=== PATIENT | male | born 1955 | race Caucasian/White ===

== ENCOUNTER → 2016-05-20 | Outpatient (CLI) | payer BC ==
[2015-11-12 14:41] VITALS: BP 118/72; PULSE 64
[~2016-05-20] MED LIST: ASCO10003 PO; ASPEC81 PO; ASPI81TA28 PO; CHOL2000 PO; COEN150C PO; FINA5TAB PO; GARL400T2 PO; GARL400T4 PO; IODI1TAB PO; MAGNTAB4 PO; MULT-506 PO; NTRGSL/4 UT; NTRSLP4 SL; OMEG10007 PO; QUERTAB PO; SLWMEC PO; TAMS0.4C38 PO; VERA180C2 PO; VRPSR180 PO
[2016-05-20 13:57] VITALS: BP 118/80; PULSE 68; TEMP 36.8; O2SAT 96
--- NOTE | 2016-05-20 15:27 | Radiation Oncology Follow-Up ---
Radiation Oncology Follow-Up Date of Visit May 20, 2016. 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 Interiano is a 59-year-old male with a history of bilateral Dupuytren contraction. He has had surgery on the left hand and is awaiting surgery on the right hand. More recently he noted the development of pain in his right foot and was seen by podiatry. Several nodules were identified and he was diagnosed with Ledderhose disease (plantar fibromatosis) the patient has noted increasing pain with walking especially weightbearing with his feet flat. 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 He was seeking intervention that may help him with his right feet pain. He does not wanted to consider surgery due to the likely healing time required. More recently he has noted the onset of some contractures and more mild discomfort in the left foot. In May of this year the patient developed transient left arm weakness which lasted for 10-15 minutes. Patient was admitted to [facility] for possible TIA and stroke rule out. The patient was seen by neurology and a history of visual disturbances was elicited raising the possibility of a variant of migraine. Patient underwent an MRI of the brain which was negative and an MRI of the brain with contrast also negative. The carotid Doppler was negative for stenosis. He was discharged with antihypertensive medication and aspirin. Patient has had no further episodes and has had complete resolution of his symptoms. The patient was seen at the department of radiation oncology at the [facility] in [place]. He was seen by Dr. Zuhair June. His review of the history and examination confirmed findings consistent with Ledderhose disease. He discussed the possibility of treatment with radiation. He was kind enough to indicate likely treatment paez and suggested treatment with bolus and en face electron paez delivering 300 cGy per fraction for 5 fractions. He then recommended a minimum four-week rest and then repeat. It is experiencing is noted that the majority of the patients do have significant pain relief but only a modest reduction in the size of the nodules. The patient wished to receive his treatment closer to home if possible. For this reason we followed the recommendation of Dr. June and treat him with electrons for 10 fractions delivering 5 fractions followed by a 2 week break followed by the final 5 fractions. The total dose was 30 GY. Interim History He is been doing well over the past 6 months. He feels that the nodularity of the plantar surface of the right foot is softer. He does have some mild discomfort with exercise. Stretching does help. His is a physical therapist and does help with massage to the foot and stretching exercises. There is been no increase in size or new nodules on the right side. He has not had any difficulty with skin on his foot since his treatment. He continues to have a nodule on the left side. He feels that this is stable. It is not becoming larger in size and there are no new nodules. Allergies Coded Allergies: Thimerosal (Verified Allergy, Unknown, UNKNOWN, 06/14/15) Home Medications Scheduled Ascorbic Acid (Vitamin C), 1 TAB PO DAILY Aspirin (Aspirin EC Low Dose), 81 MG PO QAM Cholecalciferol (Vitamin D3), 1 CAP PO DAILY Coenzyme Q10 (Ubidecarenone) (Co Q-10), 1 TAB PO DAILY Finasteride (Proscar), 1 TAB PO DAILY Fish Oil ([place]-3), 1 CAP PO DAILY Garlic-Calcium (Garlic), 2 TABS PO DAILY Iodine (Kelp) (Kelp), 1 TAB PO DAILY Magnesium Chloride (Slow-Mag Tab), 64 MG PO DAILY Multivitamin (Multivitamin), 1 TAB PO DAILY Quercetin (Quercetin), 1 TAB PO DAILY Tamsulosin Hcl (Flomax), 1 CAP PO DAILY Verapamil HCl (Verapamil HCl ER), 180 MG PO QAM Scheduled PRN Nitroglycerin (Nitrostat), 0.4 MG SL UD PRN for Chest Pain Review of Systems Gastrointestinal: Symptoms: WNL Oral: Symptoms: No Problems Respiratory: Symptoms: WNL Urinary: Symptoms: WNL Skin: Symptoms: No Problems Physical Exam Vital Signs Date Time Temp Pulse Resp B/P Pulse Ox O2 Delivery O2 Flow Rate FiO2 05/20/16 13:57 36.8 68 12 118/80 96 Pain: Patient Pain Scale: 0 - 10 Initial Pain Intensity: 0.0 Fatigue: None Extremities: non-tender, no pedal edema, + pertinent finding (there is palpable nodularity on the plantar surface of the right foot. This is smaller and softer from prior examination. He does have a nodule of the left plantar surface which measures 0.75 cm. This is nontender.) Neurologic/Psychiatric: no motor/sensory deficits, alert, normal mood/affect Skin: warm/dry Lymphatic: no adenopathy Assessment & Plan Plan: The patient was seen and examined by Dr. Salamanca. He has had improvement in the nodularity of the right foot. He feels that the left foot is stable. He does not wish to pursue treatment to the left currently at this time. We did ask him to return to our office in 6 months. He may call if he has any questions or concerns in the interim or if he feels that he would like to have the left foot treated. Total Time In Follow-Up I spent 15 minutes being to the patient performing examination. I spent 15 minutes reviewing information in completing this note. Copy To Zuhair June M.D.; West Villareal M.D.(BLAZE
== END | disposition home or self-care (01) ==
LOC: C.ONC 13:45
PROVIDERS: ATTEND Radiology Radiation Oncology
DX: Z08 Encounter for follow-up examination after completed treatment for malignant neoplasm (principal); Z92.3 Personal history of irradiation; Z87.898 Personal history of other specified conditions

== ENCOUNTER 2016-11-02 15:18 | Emergency (ER) | payer BC ==
[~2016-11-02] VITALS: Ht 188 cm; Wt 91.3 kg
[~2016-11-02 15:18] MED LIST changes: -ASPI81TA28 PO; -GARL400T2 PO; -NTRGSL/4 UT; -SLWMEC PO; -VERA180C2 PO
[2016-11-02 15:26] VITALS: BP 162/114; PULSE 81; TEMP 36.7; O2SAT 97; Ht 188 cm; Wt 91.3 kg
[2016-11-02] MEDS ORDERED: RABIES VACCINE (IMOVAX) HUMAN DIPL CELL 2.5 INTER.UNIT/ML SYR IM. ONE (15:45)
[2016-11-02] MEDS ORDERED: ASPI81TA28 PO (15:49)
[2016-11-02] MEDS ORDERED: NTRGSL/4 UT (15:49)
[2016-11-02] MEDS ORDERED: GARL400T2 PO (15:49)
[2016-11-02] MEDS ORDERED: VERA180C2 PO (15:49)
[2016-11-02] MEDS ORDERED: SLWMEC PO (15:49)
--- NOTE | 2016-11-02 16:43 | EMERGENCY ROOM VISIT NOTE ---
History First contact with patient: 15:30 Chief Complaint: RABIES VACCINE Stated Complaint: POSSIBLE EXPOSURE TO RABIES SALIVA History of Present Illness The patient is a 61 year old male who presents to the Emergency Room with his spouse, requesting rabies post exposure prophylaxis. The patient reports that he was installing fence posts on his property when a ground hog walked up to him , walking in circles.. He did kill the ground hog. The patient and are concerned because the ground hog has been eating the same peaches that he and his have been eating, and are concerned about transmission of rabies by saliva. Both the patient and have undergone the rabies post exposure prophylaxis series in the after their dog got into a fight with a ground hog that was also acting suspiciously. They did have contact with the ground hog saliva with that incident. Review of Systems 10 system review was performed and was negative except for pertinent positives and negatives as indicated in history of present illness Past Medical/Surgical History Medical Problems: (1) Ledderhose's disease (2) NSTEMI (non-ST elevated myocardial infarction) (3) TIA (transient ischemic attack) Family History Unremarkable Social History Smoking Status: Never Smoker Alcohol Use: none Drug Use: none Marital Status: Housing Status: lives with family Occupation Status: employed Current/Historical Medications Scheduled Ascorbic Acid (Vitamin C), 1 TAB PO DAILY Aspirin (Aspirin Ec), 81 MG PO DAILY Cholecalciferol (Vitamin D3), 1 CAP PO DAILY Coenzyme Q10 (Ubidecarenone) (Co Q-10), 1 TAB PO DAILY Finasteride (Proscar), 1 TAB PO DAILY Fish Oil ([place]-3), 1 CAP PO DAILY Garlic (Garlic), Unknown Dose PO DAILY Iodine (Kelp) (Kelp), 1 TAB PO DAILY Magnesium Chloride (Slow-Mag Tab), 64 MG PO DAILY Multivitamin (Multivitamin), 1 TAB PO DAILY Quercetin (Quercetin), 1 TAB PO DAILY Tamsulosin Hcl (Flomax), 1 CAP PO DAILY Verapamil Hcl (Verapamil Hcl Er), 180 MG PO QAM Scheduled PRN Nitroglycerin (Nitrostat), 0.4 MG UT PRN PRN for Chest Pain Allergies Coded Allergies: Thimerosal (Verified Allergy, Intermediate, CAUSED EYE IRRITATION-(USED IN CONTACT SOLUTIONS), 11/02/16) Physical Exam Vital Signs Date Time Temp Pulse Resp B/P (MAP) Pulse Ox O2 Delivery O2 Flow Rate FiO2 11/02/16 15:26 36.7 81 18 162/114 97 Room Air Pain Rating (0-10): 0 Physical Exam CONSTITUTIONAL: Healthy and well nourished. HEENT: Normocephalic, atraumatic. Pupils equal, round and reactive. INTEGUMENTARY: No rash or other significant dermatologic conditions noted. NEUROLOGIC: No focal neurologic deficits noted. Medical Decision & Procedures Medications Administered Medications (Trade) Dose Ordered Sig/Sae Route Start Time Stop Time Status Last Admin Dose Admin Rabies Vaccine Human Diploid Cell (Imovax Rabies) 2.5 interunit ONCE ONCE IM. 11/02/16 15:45 11/02/16 15:46 DC 11/02/16 15:48 2.5 INTERUNIT ED Course Patient history and physical exam were performed. Nurse's notes were reviewed. Vital signs were reviewed and were normal. The patient was administered Imovax IM. The patient was instructed to return in 3 days for a final Imovax immunization. Return sooner with any adverse effects to the injections. Medical Decision Impression Primary Impression: Rabies, need for prophylactic vaccination against Departure Information Dispostion Home / Self-Care Forms HOME CARE DOCUMENTATION FORM, IMPORTANT VISIT INFORMATION Patient Instructions [facility] Additional Instructions Return on Sunday 11/05 for your final Imovax injection
== END 2016-11-02 16:22 | disposition home or self-care (01) ==
LOC: C.EDB 15:19 → C.EDD 16:22
DX: Z20.3 Contact with and (suspected) exposure to rabies (principal); Z23 Encounter for immunization; I25.2 Old myocardial infarction; Z86.73 Personal history of transient ischemic attack (TIA), and cerebral infarction without residual deficits; Z79.82 Long term (current) use of aspirin; Z79.899 Other long term (current) drug therapy

== ENCOUNTER 2016-11-05 12:45 | Emergency (ER) | payer BC ==
[~2016-11-05] VITALS: Ht 188 cm; Wt 91.6 kg
[~2016-11-05 12:45] MED LIST changes: -ASPEC81 PO; +ASPI81TA28 PO; +GARL400T2 PO; -GARL400T4 PO; -MAGNTAB4 PO; +NTRGSL/4 UT; -NTRSLP4 SL; +SLWMEC PO; +VERA180C2 PO; -VRPSR180 PO
[2016-11-05 12:51] VITALS: TEMP 36.6; Ht 188 cm; Wt 91.6 kg
[2016-11-05] MEDS ORDERED: RABIES VACCINE (IMOVAX) HUMAN DIPL CELL 2.5 INTER.UNIT/ML SYR IM. ONE (13:15)
--- NOTE | 2016-11-05 13:20 | EMERGENCY ROOM VISIT NOTE ---
History First contact with patient: 13:05 Chief Complaint: RABIES VACCINE REPEAT VISIT Stated Complaint: FOLLOW UP RABIES SHOT History of Present Illness The patient is a 61 year old male who presents to the Emergency Room for a second and final Imovax injection. The patient has already undergone a previous rabies postexposure prophylaxis series. The patient denies any adverse reactions to his previous injection. Review of Systems 6 system review was performed and was negative except for pertinent positives and negatives as indicated in history of present illness Past Medical/Surgical History Medical Problems: (1) Ledderhose's disease (2) NSTEMI (non-ST elevated myocardial infarction) (3) TIA (transient ischemic attack) Social History Smoking Status: Never Smoker Alcohol Use: none Drug Use: none Marital Status: Housing Status: lives with family Occupation Status: employed Current/Historical Medications Scheduled Ascorbic Acid (Vitamin C), 1 TAB PO DAILY Aspirin (Aspirin Ec), 81 MG PO DAILY Cholecalciferol (Vitamin D3), 1 CAP PO DAILY Coenzyme Q10 (Ubidecarenone) (Co Q-10), 1 TAB PO DAILY Finasteride (Proscar), 1 TAB PO DAILY Fish Oil ([place]-3), 1 CAP PO DAILY Garlic (Garlic), Unknown Dose PO DAILY Iodine (Kelp) (Kelp), 1 TAB PO DAILY Magnesium Chloride (Slow-Mag Tab), 64 MG PO DAILY Multivitamin (Multivitamin), 1 TAB PO DAILY Quercetin (Quercetin), 1 TAB PO DAILY Tamsulosin Hcl (Flomax), 1 CAP PO DAILY Verapamil Hcl (Verapamil Hcl Er), 180 MG PO QAM Scheduled PRN Nitroglycerin (Nitrostat), 0.4 MG UT PRN PRN for Chest Pain Physical Exam Vital Signs Date Time Temp Pulse Resp B/P (MAP) Pulse Ox O2 Delivery O2 Flow Rate FiO2 11/05/16 12:51 36.6 66 18 150/89 96 Room Air Physical Exam CONSTITUTIONAL: Healthy and well nourished. HEENT: Normocephalic, atraumatic. Pupils equal, round and reactive. No scleral icterus. INTEGUMENTARY: No rash or other significant dermatologic conditions noted. NEUROLOGIC: No focal neurologic deficits noted. Medical Decision & Procedures Medications Administered Medications (Trade) Dose Ordered Sig/Sae Route Start Time Stop Time Status Last Admin Dose Admin Rabies Vaccine Human Diploid Cell (Imovax Rabies) 2.5 interunit ONCE ONCE IM. 11/05/16 13:15 11/05/16 13:16 DC 11/05/16 13:20 2.5 INTERUNIT ED Course History and physical exam were performed. Nurse's notes were reviewed. Vital signs were reviewed and normal. The patient was administered Imovax IM without adverse reaction. This is the patient's last injection in the series since the patient has already undergone a post exposure prophylaxis series in the past. The patient was advised that if he has any potential rabies exposure in the future, he should advise his healthcare provider that he has already undergone the initial immunization series. The patient was happy with plan of care, and denied any pain at the time of discharge. Medical Decision Blood Pressure Screening Patient's blood pressure: Normal blood pressure Impression Primary Impression: Need for prophylactic vaccination against rabies Departure Information Dispostion Home / Self-Care Forms HOME CARE DOCUMENTATION FORM, IMPORTANT VISIT INFORMATION Patient Instructions My [facility] Additional Instructions If you have any potential rabies exposure in the future, advise your healthcare provider that you have already undergone this immunization series.
[2016-11-05 13:32] VITALS: BP 147/84; PULSE 68; O2SAT 98
== END 2016-11-05 13:33 | disposition home or self-care (01) ==
LOC: C.EDB 12:46 → C.EDD 13:33
DX: Z23 Encounter for immunization (principal); Z20.3 Contact with and (suspected) exposure to rabies; I25.2 Old myocardial infarction; Z86.73 Personal history of transient ischemic attack (TIA), and cerebral infarction without residual deficits; Z79.82 Long term (current) use of aspirin; Z79.899 Other long term (current) drug therapy

== ENCOUNTER → 2016-11-23 | Outpatient (CLI) | payer BC ==
[2016-11-23 14:39] VITALS: BP 128/79; PULSE 66; TEMP 36.6; O2SAT 96
--- NOTE | 2016-11-23 16:25 | Radiation Oncology Follow-Up ---
Radiation Oncology Follow-Up Date of Visit Nov 23, 2016. 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 Interiano is a 61-year-old male with a history of bilateral Dupuytren contraction. He has had surgery on the left hand and is awaiting surgery on the right hand. More recently he noted the development of pain in his right foot and was seen by podiatry. Several nodules were identified and he was diagnosed with Ledderhose disease (plantar fibromatosis) the patient has noted increasing pain with walking especially weightbearing with his feet flat. 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 He was seeking intervention that may help him with his right feet pain. He does not wanted to consider surgery due to the likely healing time required. More recently he has noted the onset of some contractures and more mild discomfort in the left foot. In May of this year the patient developed transient left arm weakness which lasted for 10-15 minutes. Patient was admitted to [facility] for possible TIA and stroke rule out. The patient was seen by neurology and a history of visual disturbances was elicited raising the possibility of a variant of migraine. Patient underwent an MRI of the brain which was negative and an MRI of the brain with contrast also negative. The carotid Doppler was negative for stenosis. He was discharged with antihypertensive medication and aspirin. Patient has had no further episodes and has had complete resolution of his symptoms. The patient was seen at the department of radiation oncology at the [facility] [address] [facility] in [place]. He was seen by Dr. Zuhair June. His review of the history and examination confirmed findings consistent with Ledderhose disease. He discussed the possibility of treatment with radiation. He was kind enough to indicate likely treatment paez and suggested treatment with bolus and en face electron paez delivering 300 cGy per fraction for 5 fractions. He then recommended a minimum four-week rest and then repeat. It is experiencing is noted that the majority of the patients do have significant pain relief but only a modest reduction in the size of the nodules. The patient wished to receive his treatment closer to home if possible. For this reason we followed the recommendation of Dr. June and treat him with electrons for 10 fractions delivering 5 fractions followed by a 2 week break followed by the final 5 fractions. The total dose was 30 GY. Interim History He has been doing well over the past 6 months in regards to discomfort of his right foot. There is much less discomfort with walking. He has noted no new contractures. He does have increased discomfort of the left foot. There is 1 large contracture at the arch the foot. He gives his discomfort A level III. This unfortunately does keep him from exercise that he previously did enjoy. He would go for long hikes. This will provoke pain and therefore he has been avoiding hiking. There is a tight feeling in the arch of the foot at the end of the day. He would like to go forward with treatment now of the left foot. Allergies Coded Allergies: Thimerosal (Verified Allergy, Intermediate, CAUSED EYE IRRITATION-(USED IN CONTACT SOLUTIONS), 11/05/16) Home Medications Scheduled Ascorbic Acid (Vitamin C), 1 TAB PO DAILY Aspirin (Aspirin Ec), 81 MG PO DAILY Cholecalciferol (Vitamin D3), 1 CAP PO DAILY Coenzyme Q10 (Ubidecarenone) (Co Q-10), 1 TAB PO DAILY Finasteride (Proscar), 1 TAB PO DAILY Fish Oil ([place]-3), 1 CAP PO DAILY Garlic (Garlic), Unknown Dose PO DAILY Iodine (Kelp) (Kelp), 1 TAB PO DAILY Magnesium Chloride (Slow-Mag Tab), 64 MG PO DAILY Multivitamin (Multivitamin), 1 TAB PO DAILY Quercetin (Quercetin), 1 TAB PO DAILY Tamsulosin Hcl (Flomax), 1 CAP PO DAILY Verapamil Hcl (Verapamil Hcl Er), 180 MG PO QAM Scheduled PRN Nitroglycerin (Nitrostat), 0.4 MG UT PRN PRN for Chest Pain Review of Systems Gastrointestinal: Symptoms: WNL Oral: Symptoms: Scant Saliva/Dry Mouth Respiratory: Symptoms: WNL Urinary: Symptoms: WNL Skin: Symptoms: No Problems Physical Exam Vital Signs Date Time Temp Pulse Resp B/P (MAP) Pulse Ox O2 Delivery O2 Flow Rate FiO2 11/23/16 14:39 36.6 66 20 128/79 96 Pain: Side: Bilateral Patient Pain Scale: 0 - 10 Initial Pain Intensity: 1.0 Pain Description: Tightness Fatigue: None Extremities: + pertinent finding (right foot reveals no palpable nodules. There is no tenderness. The left foot does show a 2 cm nodule at the center of the arch of the foot. There is tenderness to palpation. There is no erythema.) Neurologic/Psychiatric: no motor/sensory deficits, alert, normal mood/affect Skin: warm/dry Assessment & Plan Plan: The patient was seen and examined by Dr. Salamanca. Potential side effects were reviewed. CT simulation was scheduled. A consent was read and signed and all questions were answered. A she'll like to go forward with treatment to the left foot. Assessment & Plan (Attending) This patient is had a good response to the initial treatment to the right foot fascia. He is able to walk without discomfort and has no tenderness to palpation. However he is noted worsening of the nodularity of the fascia on the left foot. There is now a palpable nodule in the mid portion of the left foot measuring approximately 3-1/2 cm long and fusiform and up to a centimeter and a half wide at its thickest point. This is only mildly tender but is causing discomfort while walking. The patient asked about treatment to the left foot fascia. I again reviewed with him the process of CT simulation and treatment planning. A consent form was reviewed with the patient. The schedule be the same as for his right foot. The consent form was reviewed, and initialed and signed. With the patient's consent we will proceed with CT simulation on 11/30/2016. Treatment will follow the completion of the treatment planning process. Total Time In Follow-Up I spent 20 minutes speaking to the patient performing examination. A 15 minutes reviewing information of completing this note. AK Total Time (Attending) In Follow-Up I spent 10 minutes in evaluation and discussion of treatment options with this patient and 5 minutes reviewing his chart and in preparation of this document. DARNELL Copy To Zuhair June M.D.; West Villarela M.D. (HUGH)
== END | disposition home or self-care (01) ==
LOC: C.ONC 14:31
PROVIDERS: ATTEND Physician Assistant Medical
DX: Z08 Encounter for follow-up examination after completed treatment for malignant neoplasm (principal); Z92.3 Personal history of irradiation; Z85.89 Personal history of malignant neoplasm of other organs and systems

== ENCOUNTER 2017-02-15 10:02 | Day surgery (SDC) | payer BC ==
[2017-02-14 15:12] VITALS: BMI 25.0
[~2017-02-15] VITALS: Ht 188 cm; Wt 90.9 kg
[~2017-02-15 10:02] MED LIST changes: +CEFAZOLIN 2000MG IV PUSH 10 ML IV SCH; +LACTATED RINGER'S 1000ML 1,000 ML IV SCH; +PRED20TA2 PO
[2017-02-15 10:20] VITALS: BP 174/99; PULSE 58; TEMP 36.6; O2SAT 99; Ht 188 cm; Wt 90.9 kg
[2017-02-15] MEDS ORDERED: FENTANYL CITRATE INJ 50 MCG/1 ML 2 ML VIAL ONE (12:58)
[2017-02-15] MEDS ORDERED: MIDAZOLAM HCL 1 MG/ML 2ML VIAL ONE (12:58)
--- NOTE | 2017-02-15 13:18 | History & Physical Bridge Note ---
H&P Re-Evaluation Bridge Note: I have examined the patient, reviewed the History & Physical and in the interval since the performance of the History & Physical I have noted the following changes of clinical significance: No changes noted
[2017-02-15] MEDS ORDERED: LIDOCAINE HCL 1% 20 ML VIAL ONE (13:45)
[2017-02-15] MEDS ORDERED: BACITRACIN OINT 15 GM TUBE ONE (13:46)
[2017-02-15] MEDS ORDERED: BUPIVACAINE 0.5 % 5 MG/1 ML MPF 30ML VIAL ONE (14:21)
[2017-02-15] MEDS ORDERED: LABETALOL HCL IV 5 MG/ML 20ML IV PRN (14:45)
[2017-02-15] MEDS ORDERED: ATROPINE SULFATE 0.1 MG/ML 5ML SYR IV PRN (14:45)
[2017-02-15] MEDS ORDERED: FENTANYL CITRATE INJ 50 MCG/1 ML 2 ML VIAL IV PRN (14:45)
[2017-02-15] MEDS ORDERED: ONDANSETRON INJ 2 MG/ML 2 ML VIAL IV PRN (14:45)
[2017-02-15] MEDS ORDERED: EpHEDrine SULFATE INJ 50 MG/ML AMP IV PRN (14:45)
[2017-02-15] MEDS ORDERED: PROMETHAZINE HCL INJ 12.5 MG in SODIUM CHLORIDE 0.9% 50ML 50 ML IV PRN (14:45)
[2017-02-15] MEDS ORDERED: NALOXONE HCL 0.4 MG/1 ML VIAL/CARP IV PRN (14:45)
[2017-02-15] MEDS ORDERED: FLUMAZENIL 0.1 MG/1 ML 10 ML VIAL IV PRN (14:45)
[2017-02-15] MEDS ORDERED: PROPOFOL IV EMULSION 10 MG/ML 20 ML VIAL IV ONE (15:05)
--- NOTE | 2017-02-15 15:47 | [facility] Post Operative Brief Note ---
Immediate Operative Summary Operative Date Feb 15, 2017. Pre-Operative Diagnosis Left temporal pain Post-Operative Diagnosis Left temporal pain Procedure(s) Performed Left temporal artery biopsy Surgeon Dr. Aquino Psychiatric Technician Assistant Surgeon(s) certified surgical tech/first assistant Estimated Blood Loss 10cc Findings patent temporal artery Fluids (cc crystalloids) 800ml Specimens A. Left temporal artery biopsy rule-out arthritis (sent in formalin per Dr. Aquino and Histology) Drains none Anesthesia sedation + local Complication(s) None Disposition Recovery Room / PACU
[2017-02-15] MEDS ORDERED: OXYC-57 PO (15:58)
--- NOTE | 2017-02-15 15:59 | Anesthesiology Progress Note ---
Anesthesia Post Op Note Date & Time Feb 15, 2017 at 15:59 Vital Signs Pain Intensity: 0 Vital Signs Past 12 Hours Date Time Temp Pulse Resp B/P (MAP) Pulse Ox O2 Delivery O2 Flow Rate FiO2 02/15/17 15:55 51 14 133/83 97 Room Air 02/15/17 15:47 36.5 54 12 129/84 100 Room Air 02/15/17 10:20 36.6 58 18 174/99 (124) 99 Room Air Notes Mental Status: alert / awake / arousable, participated in evaluation Pt Amnestic to Procedure: Yes Nausea / Vomiting: adequately controlled Pain: adequately controlled Airway Patency, RR, SpO2: stable & adequate BP & HR: stable & adequate Hydration State: stable & adequate Anesthetic Complications: no major complications apparent
--- NOTE | 2017-02-15 16:02 | Discharge Instructions ---
Discharge Instructions Date of Service Feb 15, 2017. Visit Reason for Visit: Temporal Pain Discharge Discharge Diagnosis / Problem: S/P left temporal artery biopsy Discharge Goals Goal(s): Decrease discomfort, Improve function Activity Recommendations Activity Limitations: resume your previous activity Lifting Limitations: none Exercise/Sports Limitations: rest today May Resume Sexual Activity: when tolerated Shower/Bathe: may shower/bathe in 3 days Driving or Machine Use: resume 3 days after discharge Anesthesia . Post Anesthesia Instructions: If you have had General Anesthesia or IV Sedation: * Do not drive today. * Resume driving when surgeon permits. * Do not make important decisions or sign legal documents today. * Call surgeon for: 1. Temperature elevations greater than 101 degrees F. 2. Uncontrollable pain. 3. Excessive bleeding. 4. Persistent nausea and vomiting. 5. Medication intolerance (nausea, vomiting or rash). * For nausea and vomiting use only clear liquids such as: tea, soda, bouillon until nausea subsides, then gradually increase diet as tolerated. * If you have any concerns or questions, call your surgeon's office. If physician is unavailable and it is an emergency, call 911 or go to the nearest emergency room. . Instructions / Follow-Up Instructions / Follow-Up keep the dressing on for 4 days, he can take a shower on 02/19/2017, no driving while taking pain medicine, follow up Dr. Aquino, 1 week, Diet Recommendations Recommended Home Diet: resume previous diet Procedures Procedures Performed: Left temporal artery biopsy Pending Studies Studies pending at discharge: no Medical Emergencies . Who to Call and When: Medical Emergencies: If at any time you feel your situation is an emergency, please call 911 immediately. . Non-Emergent Contact Non-Emergency issues call your: Primary Care Provider, Surgeon Call Non-Emergent contact if: you have a fever, temperature is above 100.5, your pain is not controlled, your pain is worsening, wound has increased drainage, wound has increased redness . . "Provider Documentation" section prepared by Zully Aquino. . [place] Drug Monitoring Program Search Results: no issues identified
[2017-02-15 16:10] VITALS: BP 139/90; PULSE 50; TEMP 36.3; O2SAT 98
--- NOTE | 2017-02-15 16:36 | OPERATIVE REPORT ---
DATE OF OPERATION: 02/15/2017 PREOPERATIVE DIAGNOSIS: Left temporal headache. POSTOPERATIVE DIAGNOSIS: Left temporal headache. PROCEDURE: Left temporal arterial biopsy. SURGEON: Dr. Zully Aquino. ANESTHESIA: Conscious sedation plus local. ESTIMATED BLOOD LOSS: About 10 mL. IV FLUIDS: 800 mL. FINDINGS: Patent temporal arterial. COMPLICATIONS: None. INDICATIONS FOR THE PROCEDURE: This is a 61-year-old gentleman who is referred for temporal arterial biopsy and based on the patient has left temporal arterial pain I did talk to the patient about the benefit and risk, alternate procedure. I indicated the risks may include but not limited such as bleeding, infection, vision change, decreased vision, stroke. The patient understands. He agreed to proceed with the procedure. He signed informed consent and I answered all questions. DETAILS OF PROCEDURE: We brought the patient to the OR, put the patient in the supine position. The patient received SCD on bilateral legs to prevent DVT. The patient received 2 grams Ancef IV for prophylactic antibiotic. The patient received conscious sedation by the anesthesiology. The patient's left side temporal artery was prepped and draped in routine sterile fashion and after time out I used the Doppler to jorden the temporal artery and then I injection 1% lidocaine mixed with 0.5% Marcaine around the incision area. Then I made about a 2 cm incision and then the temporal artery was identified and mobilized. Then I tied the temporal artery distal and proximal and remove about 1 cm piece temporal artery. Rechecked no active bleeding. Then I used a 3-0 Vicryl, closed subcutaneous layer interrupted and closed skin by using 4-0 Vicryl continuous running. Then we put the dressing on. The patient tolerated the procedure well. All the instrument, needle and sponge count correct x2 at the end of case. The specimen sent to pathology and the patient returned to recovery room in stable condition. After the procedure, I did talk to the patient and about the OR finding and procedure we did. I also gave them the postop care instruction. The patient and understand. I attest to the content of the Intraoperative Record and any orders documented therein. Any exceptions are noted below. ALEX
[2017-02-16] MEDS ORDERED: CEFAZOLIN SOD 2000MG/10 ML IV PUSH IV ONE (06:00)
== END 2017-02-15 17:00 | disposition home or self-care (01) ==
LOC: C.ACU 10:02
PROVIDERS: ATTEND Surgery
DX: R51 Headache (principal); E78.5 Hyperlipidemia, unspecified; K21.9 Gastro-esophageal reflux disease without esophagitis; N40.1 Benign prostatic hyperplasia with lower urinary tract symptoms; N13.8 Other obstructive and reflux uropathy; M72.2 Plantar fascial fibromatosis; Z79.899 Other long term (current) drug therapy

== ENCOUNTER → 2017-03-02 | Outpatient (CLI) | payer BC ==
[~2017-03-02] MED LIST changes: -CEFAZOLIN 2000MG IV PUSH 10 ML IV SCH; +DOXY100C76 PO; -LACTATED RINGER'S 1000ML 1,000 ML IV SCH
[2017-03-02 14:16] VITALS: BP 115/77; PULSE 66; TEMP 36.5; O2SAT 96
--- NOTE | 2017-03-02 14:58 | Radiation Oncology Follow-Up ---
Radiation Oncology Follow-Up Date of Visit Mar 02, 2017. 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 Interiano has a history of bilateral Dupuytren contraction. He has had surgery on the left hand and is awaiting surgery on the right hand. More recently he noted the development of pain in his right foot and was seen by podiatry. Several nodules were identified and he was diagnosed with Ledderhose disease (plantar fibromatosis) the patient has noted increasing pain with walking especially weightbearing with his feet flat. 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 He was seeking intervention that may help him with his right feet pain. He does not wanted to consider surgery due to the likely healing time required. More recently he has noted the onset of some contractures and more mild discomfort in the left foot. In May of this year the patient developed transient left arm weakness which lasted for 10-15 minutes. Patient was admitted to [facility] for possible TIA and stroke rule out. The patient was seen by neurology and a history of visual disturbances was elicited raising the possibility of a variant of migraine. Patient underwent an MRI of the brain which was negative and an MRI of the brain with contrast also negative. The carotid Doppler was negative for stenosis. He was discharged with antihypertensive medication and aspirin. Patient has had no further episodes and has had complete resolution of his symptoms. The patient was seen at the department of radiation oncology at the [facility] in [place]. He was seen by Dr. Zuhair June. His review of the history and examination confirmed findings consistent with Ledderhose disease. He discussed the possibility of treatment with radiation. He was kind enough to indicate likely treatment paez and suggested treatment with bolus and en face electron paez delivering 300 cGy per fraction for 5 fractions. He then recommended a minimum four-week rest and then repeat. It is experiencing is noted that the majority of the patients do have significant pain relief but only a modest reduction in the size of the nodules. The patient wished to receive his treatment closer to home if possible. For this reason we followed the recommendation of Dr. June and treat him with electrons for 10 fractions delivering 5 fractions followed by a 2 week break followed by the final 5 fractions. The total dose was 30 GY. He has been doing well over the past 6 months in regards to discomfort of his right foot. There is much less discomfort with walking. He has noted no new contractures. He does have increased discomfort of the left foot. There is 1 large contracture at the arch the foot. He gives his discomfort A level III. This unfortunately does keep him from exercise that he previously did enjoy. He would go for long hikes. This will provoke pain and therefore he has been avoiding hiking. There is a tight feeling in the arch of the foot at the end of the day. He would like to go forward with treatment now of the left foot. He completed radiation therapy to the left foot 01/21/2017. He received 3000 cGy. Interim History Please been doing well over the past month. He denies any difficulty with skin irritation. There was no redness. He had no peeling of the skin or dryness. He denies any pain with walking. He feels that the nodularity of the left foot has continued to improve. He is regularly using a skin moisturizer to the feet. Allergies Coded Allergies: Thimerosal (Verified Allergy, Intermediate, CAUSED EYE IRRITATION-(USED IN CONTACT SOLUTIONS), 02/15/17) Home Medications Scheduled Ascorbic Acid (Vitamin C), 1 TAB PO DAILY Aspirin (Aspirin Ec), 81 MG PO QPM Cholecalciferol (Vitamin D3), 1 CAP PO DAILY Coenzyme Q10 (Ubidecarenone) (Co Q-10), 1 TAB PO DAILY Finasteride (Proscar), 5 MG PO QPM Fish Oil ([place]-3), 1 CAP PO DAILY Garlic (Garlic), Unknown Dose PO DAILY Iodine (Kelp) (Kelp), 1 TAB PO DAILY Magnesium Chloride (Slow-Mag Tab), 64 MG PO DAILY Multivitamin (Multivitamin), 1 TAB PO DAILY Prednisone (Prednisone Tab), 20 MG PO QAM Quercetin (Quercetin), 1 TAB PO DAILY Tamsulosin Hcl (Flomax), 0.4 MG PO QPM Verapamil Hcl (Verapamil Hcl Er), 180 MG PO QPM Scheduled PRN Nitroglycerin (Nitrostat), 0.4 MG UT PRN PRN for Chest Pain Review of Systems Gastrointestinal: Symptoms: WNL Oral: Symptoms: No Problems Respiratory: Symptoms: WNL Urinary: Symptoms: WNL Skin: Symptoms: No Problems Physical Exam Vital Signs Date Time Temp Pulse Resp B/P (MAP) Pulse Ox O2 Delivery O2 Flow Rate FiO2 03/02/17 14:16 36.5 66 16 115/77 96 Extremities: + pertinent finding (examination of bilateral feet revealed mild thickness of the plantar fascia arch of the foot on the right. There is mild nodularity on the left. Greatly improved compared to prior to radiation therapy. There is no erythema or edema. There is no desquamation.) Pain Management Patient Reports Pain: Yes Pain Management Plan The pain level was 2. This is related to recent skin biopsy of the Sabianist. He did not complain to me about discomfort of the feet. Laboratory Laboratory Results: not applicable Pathology Pathology Results: not applicable Imaging Imaging Studies: not applicable Assessment & Plan Plan: Patient was seen and examined by Dr. Salamanca. He'll continue with moisturizing cream for the dryness of the skin. We asked him to return to our office in 6 months. He'll call if he has any questions or concerns in the interim. Total Time In Follow-Up I spent 15 minutes speaking to the patient had performing examination. I spent 15 minutes reviewing information in completing this note. Copy To Zuhair June M.D.; [place] M.D. ([facility])
== END | disposition home or self-care (01) ==
LOC: C.ONC 14:06
PROVIDERS: ATTEND Physician Assistant Medical
DX: Z08 Encounter for follow-up examination after completed treatment for malignant neoplasm (principal); Z92.3 Personal history of irradiation; M72.2 Plantar fascial fibromatosis